=== PATIENT | female | born 1980 | race Caucasian/White ===

== ENCOUNTER 2022-10-26 06:40 | Emergency (ER) | payer BC ==
[~2022-10-26] VITALS: Ht 162.6 cm; Wt 56.8 kg
[2022-10-26 07:42] VITALS: BP 158/103
[2022-10-26] MEDS ORDERED: ALL DAY10 MG PO (07:47)
[2022-10-26] MEDS ORDERED: CEPHALEXIN500 MG PO (07:47)
[2022-10-26] MEDS ORDERED: PREDNISONE50 MG PO (07:47)
[2022-10-26] MEDS ORDERED: DICYCLOMINE10 MG PO (07:58)
[2022-10-26] MEDS ORDERED: LEXAPRO10 MG PO (07:58)
[2022-10-26] MEDS ORDERED: PROTONIX40 M2 PO (07:58)
[2022-10-26] MEDS ORDERED: ESTRACE2 M1 PO (07:58)
[2022-10-26] MEDS ORDERED: FENOFIBRATE145 MG PO (07:59)
[2022-10-26 08:35] VITALS: BP 107/68
== END 2022-10-26 08:44 | disposition home or self-care (01) | DRG 607 ==
LOC: ED 06:40
DX: L23.7 Allergic contact dermatitis due to plants, except food (principal)